=== PATIENT | female | born 1975 | race Caucasian/White ===

== ENCOUNTER → 2021-07-28 | Outpatient (CLI) | payer OTHER ==
--- NOTE | 2021-07-28 10:11 | RAD ---
XR LUMBAR SPINE 2-3V History: Low back pain. Comparison: None. Technique: The views of the lumbar spine. Findings: There are 5 non-rib bearing lumbar vertebral segments. There is no evidence of fracture. No destructive osseous lesions. Alignment is normal. No significant facet disease. The intervertebral disc spaces are relatively preserved. Minimal endplate osteophytes at L5-S1. Sacroiliac joints are unremarkable. Surgical clips in the right upper quadrant. IMPRESSION: 1. No significant lumbar spine pathology. Electronically signed by: Que Nicole MD (07/28/2021 10:08 AM) [id number]
== END ==
LOC: RAD 08:08
PROVIDERS: ATTEND Family Medicine
DX: M54.50 Low back pain, unspecified (principal)
CPT/HCPCS: 72100